=== PATIENT | female | born 1960 | race Caucasian/White ===

== ENCOUNTER 2016-09-03 20:18 | Emergency (ER) | payer OTHER ==
--- NOTE | 2016-09-03 20:21 | PDOC ---
History of Present Illness - History of Present Illness Initial Comments: 09/03/16 20:41 The patient is a 56 year old female, with a significant past medical history of diverticulosis, who presents to the emergency department with increased abdominal pain and increased frequency for over 3 weeks. She states she has been very tired lately and noticed she has been urinating more frequently. The patient denies burning with urination and states her abdominal pain is alleviated after urination. She localizes her abdominal pain to her periumbilical region with radiation to the epigastrium. The patient states she feels she may have a bladder infection or a UTI. The patient presents as a revisit after being seen by Dr. 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 The patient reports having a negative colonoscopy a year ago. She also reports being seen by a urologist about a year ago. She denies chest pain, shortness of breath, headache and dizziness. She denies fever, chills, diarrhea and constipation. She denies hematuria. Allergies: NKDA <Angle Constantino - Last Filed: 09/03/16 20:41> <Lory Novoa - Last Filed: 09/04/16 01:16> - General Chief Complaint: Pain, Acute Stated Complaint: ABDOMINAL CRAMPING X 2 WEEKS Time Seen by Provider: 09/03/16 20:21 Past History <Angle Constantino - Last Filed: 09/03/16 20:41> - Past Medical History Anemia: No Asthma: No Cancer: No Cardiac Disorders: No CVA: No COPD: No CHF: No Dementia: No Diabetes: No GI Disorders: Yes (PUD H/O COLONIC POLYPS, DIVERTICULOSIS) Disorders: Yes (BLADDER ISSUES?) HTN: Yes Hypercholesterolemia: No Liver Disease: No Seizures: No Thyroid Disease: Yes - Surgical History Abdominal Surgery: No Appendectomy: No Cardiac Surgery: Yes (PDA AN ) Cholecystectomy: No Lung Surgery: No Neurologic Surgery: No Orthopedic Surgery: No - Psycho/Social/Smoking Cessation Hx Anxiety: No Suicidal Ideation: No Smoking History: Current every day smoker Have you smoked in the past 12 months: Yes Number of Cigarettes Smoked Daily: 10 'Breaking Loose' booklet given: 02/24/16 Hx Alcohol Use: No Drug/Substance Use Hx: No Substance Use Type: None Hx Substance Use Treatment: No <Jose Novoayessi Peng - Last Filed: 09/04/16 01:16> - Past Medical History Allergies/Adverse Reactions: Allergies Allergy/AdvReac Type Severity Reaction Status Date / Time No Known Allergies Allergy Verified 09/03/16 20:32 Home Medications: Ambulatory Orders Amlodipine Besylate [Norvasc -] 0 mg PO DAILY 02/24/16 Pantoprazole Sodium [Protonix] 40 mg PO DAILY #20 tablet. 09/03/16 Review of Systems - Review of Systems Able to Perform ROS?: Yes Comments:: 09/03/16 20:44 CONSTITUTIONAL: (+) generalized weakness and fatigue Absent: fever, chills, diaphoresis, malaise, loss of appetite HEENT: Absent: rhinorrhea, nasal congestion, throat pain, throat swelling, difficulty swallowing,mouth swelling, ear pain, eye pain, visual Changes CARDIOVASCULAR: Absent: chest pain, syncope, palpitations, irregular heart rate, lightheadedness , peripheral edema RESPIRATORY: Absent: cough, shortness of breath, dyspnea with exertion, orthopnea, wheezing, stridor, hemoptysis GASTROINTESTINAL: (+) abdominal pain, abdominal distension, nausea, vomiting, Absent: diarrhea, constipation, melena, hematochezia GENITOURINARY: (+) frequency, urgency, Absent: dysuria, hesitancy, hematuria, flank pain, genital pain MUSCULOSKELETAL: Absent: myalgia, arthralgia, joint swelling SKIN: Absent: rash, itching, pallor HEMATOLOGIC/IMMUNOLOGIC: Absent: easy bleeding, easy bruising, lymphadenopathy, frequent infections ENDOCRINE: Absent: unexplained weight gain, unexplained weight loss, heat intolerance, cold intolerance NEUROLOGIC: Absent: headache, focal weakness or paresthesias, dizziness, unsteady gait, seizure, mental status changes, bladder or bowel incontinence PSYCHIATRIC: Absent: anxiety, depression, suicidal or homicidal ideation, hallucinations. <Angle Constantino - Last Filed: 09/03/16 20:41> *Physical Exam - Physical Exam Comments: 09/03/16 20:46 GENERAL: The patient is awake, alert, and fully oriented, in no acute distress. HEAD: Normal with no signs of trauma. EYES: Pupils equal, round and reactive to light, extraocular movements intact, sclera anicteric, conjunctiva clear with no pallor. ENT: Ears normal, nares patent, oropharynx clear without exudates. Moist mucous membranes. NECK: Normal range of motion, supple without lymphadenopathy, JVD, or masses. LUNGS: Breath sounds equal, clear to auscultation bilaterally. No wheeze/ crackles. HEART: Regular rate and rhythm, normal S1 and S2 without murmur or rub. ABDOMEN: (+) Ttp to the epigastrium with guarding. mildly distended. Soft. BS wnl. No rebound. No palpable masses. No hepatosplenomegaly. EXTREMITIES: Normal range of motion, no edema. No clubbing or cyanosis. No cords , erythema, or tenderness. NEUROLOGICAL: Cranial nerves II through XII grossly intact. Normal speech, normal gait. PSYCH: Normal mood, normal affect. SKIN: Warm, Dry, normal turgor, no rashes or lesions noted. <Angle Constantino - Last Filed: 09/03/16 20:41> ED Treatment Course - LABORATORY CBC & Chemistry Diagram: 09/03/16 20:45 09/03/16 20:45 <Lory Novoa - Last Filed: 09/04/16 01:16> Progress Note - Progress Note Progress Note: Documentation has been prepared under my direction and personally reviewed by me in its entirety. I attest that this documented accurately reflects all work, treatment, procedures and medical decision making performed by me. <Lory Novoa - Last Filed: 09/04/16 01:16> Medical Decision Making - Medical Decision Making As noted above, this 56-year-old woman presents with a few week history of intermittent abdominal cramping that became worse today. Symptoms are particularly severe in the epigastric region. She also describes some change in her bowel movements: These are somewhat looser and more frequent than previously. No actual diarrhea/blood in stools noted. Today, she also noted nausea for the first time. Patient has a history of colonoscopy and endoscopy performed here by Dr. Fuentes in 2015. In retrospect, the patient states that she drinks large amounts of orange juice as well as coffee. Exam as noted Complete blood count, chemistry profile and lipase evaluated. All of these are essentially normal. Patient received Protonix 40 mg IV while awaiting completion of her laboratory studies. Patient reports significant improvement in her epigastric pain after Protonix. Results discussed with the patient. Review of Dr. Fuentes' report on endoscopy shows diagnosis of chronic gastritis given. Clinical presentation could be consistent with acute on chronic gastritis. Patient advised to follow-up with Dr. Penaloza as well as Dr. Fuentes. Meanwhile, Protonix 40 mg should be taken daily. She should avoid highly acidic foods such as citrus/coffee. She should also try using lactose-free milk (patient states she drinks a large amount of milk ). She should return to the emergency room if she has worsening of her pain or develops vomiting/fever <Lory Novoa - Last Filed: 09/04/16 01:16> *DC/Admit/Observation/Transfer - Attestations Scribe Attestion: 09/03/16 20:47 Documentation prepared by Angle Constantino, acting as quality engineer medical device for Lory Novoa MD <Angle Constantino - Last Filed: 09/03/16 20:41> <Lory Novoa - Last Filed: 09/04/16 01:16> Diagnosis at time of Disposition: Epigastric abdominal pain - Discharge Dispostion Disposition: HOME Condition at time of disposition: Stable - Prescriptions Prescriptions: Pantoprazole Sodium [Protonix] 40 mg PO DAILY #20 tablet.dr - Referrals Referrals: Jorge Penaloza MD [Primary Care Provider] - Call tomorrow Pillo Fuentes MD [Staff Physician] - 1 week - Patient Instructions Printed Discharge Instructions: Gastritis Additional Instructions: Avoid acidic foods such as orang juice Consider lactose-free milk Protonix [address] Penaloza tomorrow for follow-up as discussed Follow-up with Dr. Fuentes regarding colonoscopy/endoscopy as discussed Return to ER if you have severe pain or develop vomiting/fever
[2016-09-03] MEDS ORDERED: PANTOPRAZOLE SODIUM 40 MG in SODIUM CHLORIDE 100 ML IVPB ONE (20:42)
[2016-09-03 20:45] VITALS: BP 128/78; PULSE 76; TEMP 97.8; BMI 19.8
[2016-09-03 21:15] LABS: BASOPHIL 2.4 % (0-2.0); EOSINOPHIL 2.5 % (0-4.5); MCHC 34.4 g/dl (32.0-36.0); MEAN CELL VOLUME 93.1 fl (80-96); MEAN PLT VOLUME 8.6 fl (7.5-11.1); NEUTROPHILS 47.7 % (42.8-82.8); PLATELET COUNT 233 K/MM3 (134-434); RDW 12.5 % (11.6-15.6); WHITE BLOOD COUNT 7.4 K/mm3 (4.0-10.8)
[2016-09-03 21:28] LABS: ALBUMIN 4.2 g/dl (3.5-5.0); ALK PHOS 63 U/L (32-92); ANION GAP 9 (8-16); CALCIUM 9.3 mg/dl (8.4-10.2); CO2 23 mmol/L (22-28); GLUCOSE,RANDOM 100 mg/dl (74-106); SGOT/AST 19 U/L (10-42); SGPT/ALT 16 U/L (10-40); TOT PROT 6.6 g/dl (6.4-8.3)
== END 2016-09-03 22:54 | disposition home or self-care (01) ==
LOC: FER 20:18
PROC: 3E033GC Introduction of Other Therapeutic Substance into Peripheral Vein, Percutaneous Approach (ICD-10-PCS; principal; 2016-09-03)
DX: R10.13 Epigastric pain (principal)
CPT/HCPCS: 36415; 80053; 83690; 85025; 96365; 99281-25

== ENCOUNTER → 2016-09-03 | Emergency (ER) | payer OTHER ==
[~2016-09-03] MED LIST: ONDANSETRON *ODT* 4 MG TABLET ONE; ONDANSETRON *ODT* 4 MG TABLET SL ONE; PANTOPRAZOLE SODIUM 40 MG VIAL ONE
--- NOTE | 2016-09-03 18:41 | PDOC ---
History of Present Illness - History of Present Illness Initial Comments: 09/03/16 18:58 The patient is a 56 year old female, with a significant past medical history of diverticulosis, who presents to the emergency department with increased nausea, fatigue, abdominal pain and increased frequency for 3 weeks. The patient reports a couple episodes of vomiting, her last episode being here in the ED. She states she has been very tired lately and noticed she has been urinating more frequently. The patient reports mild burning with urination and states her abdominal pain is alleviated after urination. She localizes her abdominal pain to the midsection of her abdomen radiating slightly to her right upper quadrant. The patient states she feels she may have a bladder infection or a UTI. The patient states she just dropped her son at his soccer game and came to be evaluated today because she has not had any time for herself to come to the ED since the onset of her symptoms. She denies chest pain, shortness of breath, headache and dizziness. She denies fever, chills, diarrhea and constipation. She denies hematuria. Allergies: NKDA <Angle Constantino - Last Filed: 09/03/16 19:09> <Emily Kelley - Last Filed: 09/04/16 08:46> - General Chief Complaint: Urinary Problem Stated Complaint: URINAY SYMPTOMS Time Seen by Provider: 09/03/16 18:40 Past History <Angle Constantino - Last Filed: 09/03/16 19:09> - Past Medical History Anemia: No Asthma: No Cancer: No Cardiac Disorders: No CVA: No COPD: No CHF: No Dementia: No Diabetes: No GI Disorders: Yes (PUD H/O COLONIC POLYPS, DIVERTICULOSIS) Disorders: Yes (BLADDER ISSUES?) HTN: Yes Hypercholesterolemia: No Liver Disease: No Seizures: No Thyroid Disease: Yes - Surgical History Abdominal Surgery: No Appendectomy: No Cardiac Surgery: Yes (PDA AN ) Cholecystectomy: No Lung Surgery: No Neurologic Surgery: No Orthopedic Surgery: No - Psycho/Social/Smoking Cessation Hx Anxiety: No Suicidal Ideation: No Smoking History: Current every day smoker Have you smoked in the past 12 months: Yes Number of Cigarettes Smoked Daily: 10 Information on smoking cessation initiated: No 'Breaking Loose' booklet given: 02/24/16 Hx Alcohol Use: No Drug/Substance Use Hx: No Substance Use Type: None Hx Substance Use Treatment: No <Emily Kelley - Last Filed: 09/04/16 08:46> - Past Medical History Allergies/Adverse Reactions: Allergies Allergy/AdvReac Type Severity Reaction Status Date / Time No Known Allergies Allergy Verified 09/03/16 20:32 Home Medications: Ambulatory Orders Amlodipine Besylate [Norvasc -] 0 mg PO DAILY 02/24/16 Pantoprazole Sodium [Protonix] 40 mg PO DAILY #20 tablet. 09/03/16 Review of Systems - Review of Systems Able to Perform ROS?: Yes Comments:: 09/03/16 18:58 GENERAL/CONSTITUTIONAL: (+) fatigue. No fever or chills. HEAD, EYES, EARS, NOSE AND THROAT: No change in vision. No ear pain or discharge. No sore throat. CARDIOVASCULAR: No chest pain or shortness of breath. RESPIRATORY: No cough, wheezing, or hemoptysis. GASTROINTESTINAL: (+) nausea, vomiting, abdominal pain. No diarrhea or constipation. GENITOURINARY: (+) increased frequency. No dysuria, MUSCULOSKELETAL: No joint or muscle swelling or pain. No neck or back pain. SKIN: No rash NEUROLOGIC: No headache, vertigo, loss of consciousness, or change in strength/ sensation. ENDOCRINE: No increased thirst. No abnormal weight change. HEMATOLOGIC/LYMPHATIC: No anemia, easy bleeding, or history of blood clots. ALLERGIC/IMMUNOLOGIC: No hives or skin allergy. <Angle Constantino - Last Filed: 09/03/16 19:09> *Physical Exam - Vital Signs Last Vital Signs Temp Pulse Resp BP Pulse Ox 98.7 F 74 18 129/73 99 09/03/16 18:34 09/03/16 18:34 09/03/16 18:34 09/03/16 18:34 09/03/16 18:34 <Angle Constantino - Last Filed: 09/03/16 19:09> - Physical Exam Comments: GENERAL: Awake, alert, and fully oriented, in no acute distress HEAD: No signs of trauma EYES: PERRLA, EOMI, sclera anicteric, conjunctiva clear ENT: Auricles normal inspection, hearing grossly normal, nares patent, oropharynx clear without exudates. Dry mucosa NECK: Normal ROM, supple, no lymphadenopathy, JVD, or masses LUNGS: Breath sounds equal, clear to auscultation bilaterally. No wheezes, and no crackles HEART: Regular rate and rhythm, normal S1 and S2, no murmurs, rubs or gallops ABDOMEN: Soft, +diffuse mild tenderness, worst in epigastric area. +Guarding in epigastric area. +Hyperactive bowel sounds. No rebound. No masses EXTREMITIES: Normal range of motion, no edema. No clubbing or cyanosis. No cords, erythema, or tenderness NEUROLOGICAL: Cranial nerves II through XII grossly intact. Normal speech, normal gait SKIN: Warm, Dry, normal turgor, no rashes or lesions noted. <Emily Kelley - Last Filed: 09/04/16 08:46> ED Treatment Course - Medications Given in the ED: ED Medications Discontinued Medications Generic Name Dose Route Start Last Admin Trade Name Freq PRN Reason Stop Dose Admin Ondansetron HCl 4 mg 09/03/16 18:54 09/03/16 18:56 Zofran Odt - SL 09/03/16 18:55 4 mg ONCE ONE Administration <Angle Constantino - Last Filed: 09/03/16 19:09> Medical Decision Making - Medical Decision Making 09/03/16 18:55 Discussion with patient at bedside. She acutely became nauseous as I examined her abdomen. While this may be due to a UTI, with the epigastric tenderness, I would recommend bloodwork to further evaluate. Also, she is nauseous, appears dehydrated, and would benefit from IV fluids. She is a single parent, her son is at a sports game, she has to pick him up in 1 hour. She does not have her cell phone with her and cannot recall anybody's phone number to help her. Will plan to give her zofran ODT for her symptoms, await UA. If she must leave before it results, will return. At that point she may benefit from IVF, poss CT a/p if UA is wnl. <Emily Kelley - Last Filed: 09/04/16 08:46> *DC/Admit/Observation/Transfer - Attestations Scribe Attestion: 09/03/16 19:00 Documentation prepared by Angle Constantino, acting as medical assistant float for Emily Kelley MD, <Angle Constantino - Last Filed: 09/03/16 19:09> <Emily Kelley - Last Filed: 09/04/16 08:46> Diagnosis at time of Disposition: Epigastric abdominal pain - Discharge Dispostion Disposition: AGAINST MEDICAL ADVICE Condition at time of disposition: Stable
[2016-09-03 18:55] VITALS: BP 129/73; PULSE 74; TEMP 98.7; BMI 20.5
[2016-09-03 19:03] LABS: PH,URINE 7.5 (4.5-8); URINE APPEARANCE Clear; URINE BILIRUBIN Negative (NEGATIVE); URINE GLUCOSE (UA) Negative (NEGATIVE); URINE KETONE Negative (NEGATIVE); URINE LEUK ESTERASE Negative (NEGATIVE); URINE NITRITE Negative (NEGATIVE); URINE PROTEIN Negative (NEGATIVE); URINE UROBILINOGEN 0.2 E.U/dl (0.2-1.0)
[2016-09-03 19:04] LABS: URINE BLOOD 2+ (NEGATIVE); URINE COLOR YELLOW
[2016-09-03 20:20] LABS: URINE BACTERIA FEW /hpf (NEGATIVE); URINE WBC 0-2 (3-5)
== END | disposition left against medical advice (07) ==
LOC: FER 18:34
DX: R10.9 Unspecified abdominal pain (principal); R53.83 Other fatigue; R11.2 Nausea with vomiting, unspecified; R30.0 Dysuria
CPT/HCPCS: 81003; 81015; 87086; 99282-25

== ENCOUNTER 2017-08-19 08:21 | Emergency (ER) | payer OTHER ==
--- NOTE | 2017-08-19 08:24 | PDOC ---
History of Present Illness - General Chief Complaint: Redness To Affected Area Stated Complaint: LEFT 3RD FINGER WOUND Time Seen by Provider: 08/19/17 08:24 - History of Present Illness Initial Comments: 08/19/17 09:24 57-year-old female with a history of hypertension presents to the emergency department with left distal third finger pain for 4 days. Patient reports 4 days ago, she was cleaning crumbs off the ground when something sharp stuck her at home. She reports instant pain in the fingertip on the medial aspect and noticing some bleeding underneath her skin as well. At that time, patient was not sure if something had gone into her finger, and thus she he did a needle and began to explore the wound to see if there was anything inside. She was unable to find anything, but reports since then she has had increasing pain and swelling in her distal fingertip. Denies any fevers or chills. Denies some swelling to the finger. Has not taken anything for pain. Patient otherwise in her usual state of health, denies headache, chest pain, shortness of breath, weakness, abdominal pain, nausea/vomiting/diarrhea, urinary symptoms. Past History - Past Medical History Allergies/Adverse Reactions: Allergies Allergy/AdvReac Type Severity Reaction Status Date / Time No Known Allergies Allergy Verified 08/19/17 08:22 Anemia: No Asthma: No Cancer: No Cardiac Disorders: No CVA: No COPD: No CHF: No Dementia: No Diabetes: No GI Disorders: Yes (PUD H/O COLONIC POLYPS, DIVERTICULOSIS) Disorders: Yes (BLADDER ISSUES?) HTN: Yes Hypercholesterolemia: No Liver Disease: No Seizures: No Thyroid Disease: Yes - Surgical History Abdominal Surgery: No Appendectomy: No Cardiac Surgery: Yes (PDA AN ) Cholecystectomy: No Lung Surgery: No Neurologic Surgery: No Orthopedic Surgery: No - Suicide/Smoking/Psychosocial Hx Smoking History: Current every day smoker Have you smoked in the past 12 months: Yes Number of Cigarettes Smoked Daily: 10 'Breaking Loose' booklet given: 02/24/16 Hx Alcohol Use: No Drug/Substance Use Hx: No Substance Use Type: None Hx Substance Use Treatment: No Review of Systems - Review of Systems Comments:: 08/19/17 09:26 GENERAL/CONSTITUTIONAL: No fever or chills. No weakness. HEAD, EYES, EARS, NOSE AND THROAT: No change in vision. No ear pain or discharge. No sore throat. GASTROINTESTINAL: No nausea, vomiting, diarrhea or constipation. GENITOURINARY: No dysuria, frequency, or change in urination. CARDIOVASCULAR: No chest pain or shortness of breath. RESPIRATORY: No cough, wheezing, or hemoptysis. MUSCULOSKELETAL: No joint or muscle swelling or pain. No neck or back pain. + distal finger pain SKIN: No rash NEUROLOGIC: No headache, vertigo, loss of consciousness, or change in strength/ sensation. ENDOCRINE: No increased thirst. No abnormal weight change. HEMATOLOGIC/LYMPHATIC: No anemia, easy bleeding, or history of blood clots. ALLERGIC/IMMUNOLOGIC: No hives or skin allergy. *Physical Exam - Physical Exam Comments: 08/19/17 09:26 GENERAL: Awake, alert, and fully oriented, in no acute distress HEAD: No signs of trauma EYES: PERRLA, EOMI, sclera anicteric, conjunctiva clear ENT: Auricles normal inspection, hearing grossly normal, nares patent, oropharynx clear without exudates. Moist mucosa NECK: Normal ROM, supple, no lymphadenopathy, JVD, or masses LUNGS: Breath sounds equal, clear to auscultation bilaterally. No wheezes, and no crackles HEART: Regular rate and rhythm, normal S1 and S2, no murmurs, rubs or gallops ABDOMEN: Soft, nontender, normoactive bowel sounds. No guarding, no rebound. No masses EXTREMITIES: L distal 3rd phalynx on medial aspect with fluids vs pus filled blister with underlying bleeding, tenderness to palpation and mild erythema. FROM passively and actively to the finger. Normal sensation. 2+ radial pulse. Other extremities: Normal range of motion, no edema. No clubbing or cyanosis. No cords, erythema, or tenderness NEUROLOGICAL: Normal speech, cranial nerves intact, negative pronator drift, 5/ 5 strength in all 4 extremities, normal sensation to light touch in all 4 extremities, normal cerebellar exam, normal gait, normal reflexes and tone SKIN: Warm, Dry, normal turgor, no rashes or lesions noted. Medical Decision Making - Medical Decision Making 08/19/17 09:28 57-year-old female presents with left third finger pain after sticking her finger with something sharp while cleaning her home. She complains of foreign body sensation and significant pain, she is unsure if anything is in there. Vitals unremarkable. Likely pulp infection. Will obtain x-ray to evaluate for foreign body, give a digital nerve block, and explore the wound. Patient does not remember her last tetanus, will update. 08/19/17 10:13 XR with no FB. Digital block done with good relief of pain. A 15 blade was used to incise the area of purulent material with drainage of purulent material followed by blood. Distal finger was expressed multiple times to ensure there were no more pockets of purulent material. Finger was dressed loosely with sterile gauze. Given pulp infection, will refer pt to hand. Advised pt to do warm soaks multiple times a day. 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 Pt given strict return precautions if pain, redness becomes worse, or reaccumulation of pus, swelling, pt to return to the ED. Given motrin for when block wears off. I discussed the physical exam findings, ancillary test results and final diagnoses with the patient. I answered all of the patient's questions. The patient was satisfied with the care received and felt comfortable with the discharge plan and treatment plan. The patient will call their primary care physician within 24 hours to arrange follow-up and will return to the Emergency Department with any new, persistent or worsening symptoms. *DC/Admit/Observation/Transfer Diagnosis at time of Disposition: Pulp abscess of finger - Discharge Dispostion Disposition: HOME Condition at time of disposition: Stable Admit: No - Referrals Referrals: Jonny Martinez MD [Staff Physician] - - Patient Instructions Printed Discharge Instructions: MAXI Smith Additional Instructions: Call Dr. Martinez's office today for a follow up appointment with the hand doctor within 2-3 days. As discussed, do warm soaks 3-4 times per day. Keep the finger loosely covered with gauze. Return to the emergency department immediately if you have any worsening pain, redness, swelling, reaccumulation of fluid or any new, worsening, or concerning symptoms. - Post Discharge Activity - Attestations Physician Attestion: 08/19/17 10:22 I, Dr. Mateo Allan MD, attest that this document has been prepared under my direction and personally reviewed by me in its entirety. I further attest, that it accurately reflects all work, treatment, procedures and medical decision -making performed by me.
[2017-08-19] MEDS ORDERED: DIPHTH,PERTUSS(ACELL),TET 0.5 ML DISP.SYRIN IM ONE (08:25)
[2017-08-19 08:33] VITALS: BP 133/94; PULSE 77; TEMP 99.1; BMI 20.2
[2017-08-19] MEDS ORDERED: LIDOCAINE HCL 1%, 10 MG/ML (20ML VIAL) ONE (09:49)
[2017-08-19] MEDS ORDERED: LIDOCAINE HCL 1%, 10 MG/ML (50 mL VIAL) SQ ONE (10:19)
[2017-08-19] MEDS ORDERED: IBUPROFEN 600 MG TABLET (FP) PO ONE ×2 (10:19→10:21)
== END 2017-08-19 10:26 | disposition home or self-care (01) ==
LOC: FER 08:21
PROC: 3E0234Z Introduction of Serum, Toxoid and Vaccine into Muscle, Percutaneous Approach (ICD-10-PCS; principal; 2017-08-19)
PROC: 0H9GXZZ Drainage of Left Hand Skin, External Approach (ICD-10-PCS; 2017-08-19)
DX: L02.512 Cutaneous abscess of left hand (principal); I10 Essential (primary) hypertension; F17.210 Nicotine dependence, cigarettes, uncomplicated
CPT/HCPCS: 10060; 73130-TC-LR-FY; 90471; 90715; 99281-25

== ENCOUNTER 2021-09-20 07:59 | Emergency (ER) | payer OTHER ==
[2021-09-20 08:14] VITALS: BP 156/98; PULSE 81; TEMP 98.7; BMI 19.4
[2021-09-20] MEDS ORDERED: IBUPROFEN 400 MG TABLET (FP) PO ONE ×2 (08:26→08:46)
[2021-09-20] MEDS ORDERED: ACETAMINOPHEN 325 MG TABLET (FP) PO ONE (08:26)
[2021-09-20] MEDS ORDERED: ACETAMINOPHEN 325 MG TABLET (FP) ONE (08:47)
== END 2021-09-20 09:05 | disposition home or self-care (01) ==
LOC: FER 07:59
DX: M54.2 Cervicalgia (principal)
CPT/HCPCS: 99283-25

== ENCOUNTER 2022-10-30 08:04 | Day surgery (SDC) | payer OTHER ==
[2022-10-25 11:53] VITALS: BMI 19.4
[2022-10-30 09:36] VITALS: RESP 18; TEMP 98
[2022-10-30 10:03] VITALS: BP 110/76; PULSE 59
== END 2022-10-30 10:08 | disposition home or self-care (01) ==
LOC: FASU-ENDO 08:04 → FASUSAT 08:04 → FASU-ENDO 10:08
PROVIDERS: ATTEND Internal Medicine Gastroenterology
PROC: 0DJD8ZZ Inspection of Lower Intestinal Tract, Via Natural or Artificial Opening Endoscopic (ICD-10-PCS; principal; 2022-10-30 09:22)
DX: Z12.11 Encounter for screening for malignant neoplasm of colon (principal); Z86.010 Personal history of colon polyps; K57.30 Diverticulosis of large intestine without perforation or abscess without bleeding

== ENCOUNTER 2023-11-18 19:34 | Emergency (ER) | payer OTHER ==
[2023-11-18 20:14] VITALS: BP 166/71; PULSE 81; RESP 20; TEMP 98.1; BMI 19.8
[2023-11-18] MEDS ORDERED: DIPHTH,PERTUSS(ACELL),TET 0.5 ML DISP.SYRIN IM ONE (20:40)
[2023-11-18] MEDS: DIPHTH,PERTUSS(ACELL),TET 0.5 ML DISP.SYRIN IM ONE (20:42)
== END 2023-11-18 20:49 | disposition home or self-care (01) ==
LOC: FER 19:34
PROC: 3E0234Z Introduction of Serum, Toxoid and Vaccine into Muscle, Percutaneous Approach (ICD-10-PCS; principal; 2023-11-18)
DX: S61.215A Laceration without foreign body of left ring finger without damage to nail, initial encounter (principal); W26.0XXA Contact with knife, initial encounter; Z23 Encounter for immunization
CPT/HCPCS: 90471; 90715; 99284-25

== ENCOUNTER 2024-01-10 09:44 | Emergency (ER) | payer OTHER ==
[2024-01-10 09:48] VITALS: RESP 16; TEMP 98.8; BMI 19.1
[2024-01-10] MEDS ORDERED: ACETAMINOPHEN 500 MG TABLET (FP) ONE (10:01)
[2024-01-10] MEDS ORDERED: KETOROLAC TROMETHAMINE 30 MG/1 ML VIAL ONE (10:01)
[2024-01-10] MEDS ORDERED: LIDOCAINE 5% TOPICAL PATCH ONE (10:02)
[2024-01-10] MEDS: KETOROLAC TROMETHAMINE 30 MG/1 ML VIAL IM ONE (10:10)
[2024-01-10] MEDS: LIDOCAINE 5% TOPICAL PATCH TP ONE (10:10)
[2024-01-10] MEDS: ACETAMINOPHEN 500 MG TABLET (FP) PO ONE (10:13)
[2024-01-10] MEDS ORDERED: METHOCARBAMOL 500 MG TABLET ONE (10:22)
[2024-01-10 10:42] VITALS: BP 186/98; PULSE 71
[2024-01-10] MEDS: METHOCARBAMOL 500 MG TABLET PO ONE (10:45)
[2024-01-10] MEDS ORDERED: LIDOCAINE PATCH REMOVAL MC SCH (22:00)
== END 2024-01-10 10:47 | disposition home or self-care (01) ==
LOC: FER 09:44
PROC: 3E0133Z Introduction of Anti-inflammatory into Subcutaneous Tissue, Percutaneous Approach (ICD-10-PCS; principal; 2024-01-10)
DX: M54.2 Cervicalgia (principal); M54.6 Pain in thoracic spine; G89.29 Other chronic pain
CPT/HCPCS: 99284-25